=== PATIENT | male | born 1935 | race Caucasian/White ===

== ENCOUNTER 2021-10-19 18:55 | Inpatient (IN) | payer MEDICARE, BC ==
--- NOTE | 2021-10-19 19:27 | EDM.PDOC ---
ED HPI GENERAL MEDICAL PROBLEM - General Chief Complaint: General Stated Complaint: weakness Time Seen by Provider: 10/19/21 19:15 Source of Information: Reports: Patient, EMS History Limitations: Reports: Uncooperative - History of Present Illness INITIAL COMMENTS - FREE TEXT/NARRATIVE: Arrived via EMS. Reported to have been getting weaker over past few weeks. Unvaccinated and reported not to have seen a provider in over 20 years. It is difficult to obtain any history or ROS from this patient as he answers every question with a joking response, even when asked to refrain from joking long enough to talk with us. RN also unable to obtain answers without him joking. He is able to speak in full sentences, weakness noted when he tried to sit up on stretcher for lung auscultation. Location: Reports: Other (will not answer questions without joking) - Related Data Allergies Allergy/AdvReac Type Severity Reaction Status Date / Time No Known Allergies Allergy Verified 10/19/21 18:55 Home Meds: Home Meds . [No Known Home Meds] 10/19/21 [History] Past Medical History - Past Surgical History HEENT Surgical History: Reports: Cataract Surgery Social & Family History - Tobacco Use Tobacco Use Status *Q: Former Tobacco User - Alcohol Use Alcohol Use History: Yes ED ROS GENERAL - Review of Systems Review Of Systems: Unable To Obtain Reason Not Obtained: refuses to answer questions without joking ED EXAM, GENERAL - Physical Exam Exam: See Below Exam Limited By: Other (refuses to answer questions without joking) General Appearance: Alert, No Apparent Distress Eye Exam: Bilateral Eye: EOMI, Normal Inspection Ears: Normal External Exam, Hearing Grossly Normal Nose: Normal Inspection, Normal Mucosa, No Blood Throat/Mouth: Normal Inspection, Normal Oropharynx, Normal Voice, No Airway Compromise, Other (dry membranes) Head: Atraumatic, Normocephalic Neck: Normal Inspection, Supple, Non-Tender, Full Range of Motion Respiratory/Chest: No Accessory Muscle Use, Chest Non-Tender, Decreased Breath Sounds, Other (coarse breath sounds, diminished in bases, more so on left) Cardiovascular: Regular Rate, Rhythm, No Edema GI/Abdominal: Normal Bowel Sounds, Soft, Non-Tender, No Distention Extremities: Normal Inspection, Normal Range of Motion, Non-Tender, No Pedal Edema, Normal Capillary Refill Neurological: Alert, Oriented Psychiatric: Normal Affect, Normal Mood, Other (joking when answering) Skin Exam: Warm, Dry, Intact, Normal Color, No Rash Lymphatic: No Adenopathy Course - Orders/Labs/Meds Orders: Active Orders 24 hr Category Date Time Status Chest 1V Frontal [CR] Stat Exams 10/19/21 19:17 Ordered Blood Alcohol [ETHANOL BLOOD MEDICAL] [CHEM] Stat Lab 10/19/21 19:17 Ordered CBC WITH AUTO DIFF [HEME] Stat Lab 10/19/21 19:05 Ordered CMP [COMPREHENSIVE METABOLIC PN,CMP] [CHEM] Stat Lab 10/19/21 19:05 Ordered CORONAVIRUS COVID-19 RAPID [MOLEC] Stat Lab 10/19/21 18:59 Ordered INFLUENZA A+B AG SCREEN [RM] Stat Lab 10/19/21 19:12 Ordered Isolation [COMM] Routine Oth 10/19/21 19:12 Active - Re-Assessments/Exams Free Text/Narrative Re-Assessment/Exam: 10/19/21 20:00 Yasemin Plummer called and some information was obtained through her. He did have cataract surgery n 2020 and she thinks it was at [facility]. she reports that approx 7 years ago he has what she described as "a viral infection in his heart" and is supposed to take an unknown med, but he does not. She states that he drinks "a lot" but that he has not been drinking since he got sick. She reports that this behavior of not answering our questions is normal for him. 10/19/21 20:12 Pt did become serious when asked about his code status. He wishes to be DNR. BP improved, oxygen still in use, pt to room for admission. Departure - Departure Time of Disposition: 20:13 Disposition: Admitted As Inpatient 68 Condition: Good Clinical Impression: Pneumonia due to COVID-19 virus - Discharge Information - Problem List & Annotations (1) Pneumonia due to COVID-19 virus SNOMED Code(s): 910141329229660133 Code(s): U07.1 - COVID-19; J12.82 - PNEUMONIA DUE TO CORONAVIRUS DISEASE 2019 Status: Acute - My Orders Last 24 Hours: My Active Orders 10/19/21 18:59 CORONAVIRUS COVID-19 RAPID [MOLEC] Stat 10/19/21 19:05 CBC WITH AUTO DIFF [HEME] Stat CMP [COMPREHENSIVE METABOLIC PN,CMP] [CHEM] Stat 10/19/21 19:12 INFLUENZA A+B AG SCREEN [RM] Stat Isolation [COMM] Routine 10/19/21 19:17 Chest 1V Frontal [CR] Stat Blood Alcohol [ETHANOL BLOOD MEDICAL] [CHEM] Stat - Assessment/Plan Last 24 Hours: My Active Orders 10/19/21 18:59 CORONAVIRUS COVID-19 RAPID [MOLEC] Stat 10/19/21 19:05 CBC WITH AUTO DIFF [HEME] Stat CMP [COMPREHENSIVE METABOLIC PN,CMP] [CHEM] Stat 10/19/21 19:12 INFLUENZA A+B AG SCREEN [RM] Stat Isolation [COMM] Routine 10/19/21 19:17 Chest 1V Frontal [CR] Stat Blood Alcohol [ETHANOL BLOOD MEDICAL] [CHEM] Stat
[2021-10-19 19:38] LABS: CHLORIDE,CL 100 mEq/L (98-106); SODIUM,NA 139 mEq/L (136-145)
[2021-10-19] MEDS ORDERED: REMDESIVIR 200 MG in Sodium Chloride 0.9% 250 ML IV ONE (20:06)
[2021-10-19] MEDS ORDERED: Acetaminophen 325 MG Tab PO PRN (20:34)
[2021-10-19] MEDS ORDERED: Ondansetron 4 MG/2 ML SDV IV PRN (20:34)
[2021-10-19] MEDS ORDERED: Dexamethasone 4 MG/ML SDV ONE (20:58)
[2021-10-19] MEDS ORDERED: Dexamethasone 4 MG/ML 5 ML MDV IVPUSH SCH ×3 (21:00→22:00)
[2021-10-19] MEDS ORDERED: Dexamethasone 4 MG/ML SDV IVPUSH ONE (21:38)
[2021-10-19] MEDS: Albuterol/Ipratropium 3.0-0.5 MG/3 ML Neb Soln NEB PRN (21:44)
[2021-10-19] MEDS: Multivitamin Tab PO SCH (21:44)
[2021-10-19] MEDS: Dexamethasone 4 MG/ML SDV IVPUSH SCH (21:47)
[2021-10-19] MEDS: Sodium Chloride 0.9% 1,000 ML IV SCH (21:52)
[2021-10-19] MEDS ORDERED: Dexamethasone 4 MG/ML SDV IVPUSH SCH (22:00)
[2021-10-20] MEDS: Sodium Chloride 0.9% 1,000 ML IV SCH ×3 (06:03→23:28)
[2021-10-20] MEDS: Albuterol/Ipratropium 3.0-0.5 MG/3 ML Neb Soln NEB PRN (06:04)
[2021-10-20] MEDS: Multivitamin Tab PO SCH (07:36)
[2021-10-20 07:46] LABS: CHLORIDE,CL 102 mEq/L (98-106); SODIUM,NA 137 mEq/L (136-145)
--- NOTE | 2021-10-20 10:24 | PCM.PN ---
- General Info Date of Service: 10/20/21 Admission Dx/Problem (Free Text): COVID Pneumonia Subjective Update: States feeling much better today. Is answering questions more appropriately with less joking this morning. Able to sit up in bed much easier today. Functional Status: Reports: Pain Controlled, Tolerating Diet - Review of Systems General: Reports: Weakness, Malaise HEENT: Reports: No Symptoms Pulmonary: Reports: Shortness of Breath, Cough Cardiovascular: Reports: No Symptoms Gastrointestinal: Reports: No Symptoms Genitourinary: Reports: No Symptoms Musculoskeletal: Reports: No Symptoms Skin: Reports: No Symptoms Neurological: Reports: No Symptoms Psychiatric: Reports: No Symptoms - Patient Data Vitals - Most Recent: Last Vital Signs Temp 97.2 F 10/20/21 08:00 Pulse 80 10/20/21 08:00 Resp 18 10/20/21 08:00 BP 138/89 10/20/21 08:00 Pulse Ox 95 10/20/21 08:00 Weight - Most Recent: 220 lb I&O - Last 24 Hours: Intake & Output 10/19/21 10/20/21 10/20/21 22:59 06:59 14:59 Intake Total 1100 Balance 1100 Lab Results Last 24 Hours: Laboratory Results - last 24 hr 10/19/21 10/19/21 10/19/21 Range/Units 19:20 19:20 19:20 WBC 6.2 (4.0-11.0) 10^3/uL RBC 4.17 L (4.50-6.00) x10^6/uL Hgb 13.4 L (14.0-18.0) g/dL Hct 40.1 L (42.0-52.0) % MCV 96.2 (83.0-97.0) fL MCH 32.1 H (27.0-32.0) pg MCHC 33.4 (32.0-36.0) g/dL RDW Coeff of Trisha 13.3 (11.0-15.0) % Plt Count 219 (150-400) 10^3/uL Immature Gran % (Auto) 1.1 (0.0-4.9) % Neut % (Auto) 71.9 H (41-71) % Lymph % (Auto) 12.2 L (24-44) % Canyon % (Auto) 13.5 H (0-10) % Eos % (Auto) 1.0 (0-6) % Baso % (Auto) 0.3 (0-1) % Neut # (Auto) 4.48 (1.80-8.00) x10^3/uL Lymph # (Auto) 0.76 (0.60-5.00) 10^3/uL Canyon # (Auto) 0.84 (0.00-1.50) 10^3/uL Eos # (Auto) 0.06 (0.00-1.50) 10^3/uL Baso # (Auto) 0.02 (0.00-0.50) 10^3/uL Immature Gran # (Auto) 0.07 (0.00-0.49) 10^3/uL Sodium 139 (136-145) mEq/L Potassium 3.9 (3.5-5.0) mEq/L Chloride 100 (98-106) mEq/L Carbon Dioxide 27 (21-32) mmol/L BUN 20 H (7-18) mg/dL Creatinine 1.2 (0.7-1.3) mg/dL Est Cr Clr Drug Dosing 47.93 mL/min Estimated GFR (MDRD) 58 L (>=60) mL/min Glucose 102 H (75-99) mg/dL Calcium 8.3 L (8.4-10.1) mg/dL Total Bilirubin 0.7 (0.0-1.0) mg/dL Direct Bilirubin (0.0-0.3) mg/dL AST 23 (15-37) U/L ALT 38 (12-78) U/L Alkaline Phosphatase 74 (46-116) U/L C-Reactive Protein (0.2-0.8) mg/dL Total Protein 7.4 (6.4-8.2) g/dL Albumin 2.8 L (3.4-5.0) g/dL Ethyl Alcohol < 3 (0-3) mg/dL SARS CoV-2 RNA Rapid FAB Positive H (NEGATIVE) 10/19/21 10/20/21 10/20/21 Range/Units 19:20 07:05 07:05 WBC 3.0 L (4.0-11.0) 10^3/uL RBC 4.04 L (4.50-6.00) x10^6/uL Hgb 12.9 L (14.0-18.0) g/dL Hct 38.8 L (42.0-52.0) % MCV 96.0 (83.0-97.0) fL MCH 31.9 (27.0-32.0) pg MCHC 33.2 (32.0-36.0) g/dL RDW Coeff of Trisha 13.4 (11.0-15.0) % Plt Count 208 (150-400) 10^3/uL Immature Gran % (Auto) 2.0 (0.0-4.9) % Neut % (Auto) 76.9 H (41-71) % Lymph % (Auto) 13.4 L (24-44) % Canyon % (Auto) 7.4 (0-10) % Eos % (Auto) 0.0 (0-6) % Baso % (Auto) 0.3 (0-1) % Neut # (Auto) 2.29 (1.80-8.00) x10^3/uL Lymph # (Auto) 0.40 L (0.60-5.00) 10^3/uL Canyon # (Auto) 0.22 (0.00-1.50) 10^3/uL Eos # (Auto) 0.00 (0.00-1.50) 10^3/uL Baso # (Auto) 0.01 (0.00-0.50) 10^3/uL Immature Gran # (Auto) 0.06 (0.00-0.49) 10^3/uL Sodium (136-145) mEq/L Potassium (3.5-5.0) mEq/L Chloride (98-106) mEq/L Carbon Dioxide (21-32) mmol/L BUN (7-18) mg/dL Creatinine (0.7-1.3) mg/dL Est Cr Clr Drug Dosing mL/min Estimated GFR (MDRD) (>=60) mL/min Glucose (75-99) mg/dL Calcium (8.4-10.1) mg/dL Total Bilirubin (0.0-1.0) mg/dL Direct Bilirubin 0.1 (0.0-0.3) mg/dL AST (15-37) U/L ALT (12-78) U/L Alkaline Phosphatase (46-116) U/L C-Reactive Protein 12.7 H (0.2-0.8) mg/dL Total Protein (6.4-8.2) g/dL Albumin (3.4-5.0) g/dL Ethyl Alcohol (0-3) mg/dL SARS CoV-2 RNA Rapid FAB (NEGATIVE) 10/20/21 10/20/21 Range/Units 07:05 10:10 WBC (4.0-11.0) 10^3/uL RBC (4.50-6.00) x10^6/uL Hgb (14.0-18.0) g/dL Hct (42.0-52.0) % MCV (83.0-97.0) fL MCH (27.0-32.0) pg MCHC (32.0-36.0) g/dL RDW Coeff of Trisha (11.0-15.0) % Plt Count (150-400) 10^3/uL Immature Gran % (Auto) (0.0-4.9) % Neut % (Auto) (41-71) % Lymph % (Auto) (24-44) % Canyon % (Auto) (0-10) % Eos % (Auto) (0-6) % Baso % (Auto) (0-1) % Neut # (Auto) (1.80-8.00) x10^3/uL Lymph # (Auto) (0.60-5.00) 10^3/uL Canyon # (Auto) (0.00-1.50) 10^3/uL Eos # (Auto) (0.00-1.50) 10^3/uL Baso # (Auto) (0.00-0.50) 10^3/uL Immature Gran # (Auto) (0.00-0.49) 10^3/uL Sodium 137 (136-145) mEq/L Potassium 4.3 (3.5-5.0) mEq/L Chloride 102 (98-106) mEq/L Carbon Dioxide 24 (21-32) mmol/L BUN 21 H (7-18) mg/dL Creatinine 1.0 (0.7-1.3) mg/dL Est Cr Clr Drug Dosing 59.61 mL/min Estimated GFR (MDRD) > 60 (>=60) mL/min Glucose 149 H D (75-99) mg/dL Calcium 8.0 L (8.4-10.1) mg/dL Total Bilirubin 0.4 (0.0-1.0) mg/dL Direct Bilirubin (0.0-0.3) mg/dL AST 23 (15-37) U/L ALT 35 (12-78) U/L Alkaline Phosphatase 74 (46-116) U/L C-Reactive Protein 13.6 H (0.2-0.8) mg/dL Total Protein 7.1 (6.4-8.2) g/dL Albumin 2.6 L (3.4-5.0) g/dL Ethyl Alcohol (0-3) mg/dL SARS CoV-2 RNA Rapid FAB (NEGATIVE) [place]ell Results Last 24 Hours: Microbiology 10/19/21 19:20 Influenza Type A Antigen Screen - Final Nasal, Unspecified NEGATIVE INFLUENZA A VIRUS AG REFERENCE RANGE: NEGATIVE Influenza Type B Antigen Screen - Final NEGATIVE INFLUENZA B VIRUS AG REFERENCE RANGE: NEGATIVE Med Orders - Current: Current Medications Acetaminophen (Acetaminophen 325 Mg Tab) 650 mg PO Q4H PRN PRN Reason: Pain (Mild 1-3)/fever Albuterol/Ipratropium (Albuterol/Ipratropium 3.0-0.5 Mg/3 Ml Neb Soln) 3 ml NEB Q4H PRN PRN Reason: Shortness Of Breath/wheezing Last Admin: 10/20/21 06:04 Dose: 3 ml Documented by: Dexamethasone (Dexamethasone 4 Mg/Ml Sdv) 6 mg IVPUSH DAILY@2200 [facility] Stop: 10/23/21 22:01 Last Admin: 10/19/21 21:47 Dose: 6 mg Documented by: Enoxaparin Sodium (Enoxaparin 40 Mg/0.4 Ml Syringe) 40 mg SUBCUT Q24H [facility] Sodium Chloride (Normal Saline) 1,000 mls @ 125 mls/hr IV ASDIRECTED [facility] Last Admin: 10/20/21 06:03 Dose: 125 mls/hr Documented by: Remdesivir 100 mg/ Sodium (Chloride) 100 mls @ 100 mls/hr IV Q24H [facility] Stop: 10/23/21 20:59 Multivitamins/Minerals/Vitamin C (Multivitamin Tab) 1 tab PO DAILY [facility] Last Admin: 10/20/21 07:36 Dose: 1 tab Documented by: Ondansetron HCl (Ondansetron 4 Mg/2 Ml Sdv) 4 mg IV Q6H PRN PRN Reason: Nausea/Vomiting Discontinued Medications Dexamethasone (Dexamethasone 4 Mg/Ml 5 Ml Mdv) 6 mg IVPUSH Q24H [facility] Stop: 10/23/21 21:01 Dexamethasone (Dexamethasone 4 Mg/Ml Sdv) Confirm Administered Dose 8 mg .ROUTE .STK-MED ONE Stop: 10/19/21 20:59 Dexamethasone (Dexamethasone 4 Mg/Ml Sdv) 6 mg IVPUSH ONETIME ONE Stop: 10/19/21 21:39 Dexamethasone (Dexamethasone 4 Mg/Ml 5 Ml Mdv) 6 mg IVPUSH Q24H [facility] Stop: 10/23/21 21:01 Dexamethasone (Dexamethasone 4 Mg/Ml 5 Ml Mdv) 6 mg IVPUSH Q24H [facility] Stop: 10/23/21 22:01 Dexamethasone (Dexamethasone 4 Mg/Ml 5 Ml Mdv) 6 mg IVPUSH Q24H [facility] Stop: 10/22/21 21:39 Dexamethasone (Dexamethasone 4 Mg/Ml Sdv) 4 mg IVPUSH DAILY@2200 [facility] Remdesivir 200 mg/ Sodium (Chloride) 250 mls @ 250 mls/hr IV ONETIME ONE Stop: 10/19/21 20:07 Last Admin: 10/19/21 20:48 Dose: 250 mls/hr Documented by: - Exam Quality Assessment: Supplemental Oxygen, DVT Prophylaxis General: Alert, Oriented, Cooperative HEENT: EOMI, Mucous Membr. Moist/[place] Neck: Supple Lungs: Decreased Breath Sounds, Other (somewhat coarse, but better airflow today) Cardiovascular: Regular Rate, Regular Rhythm GI/Abdominal Exam: Normal Bowel Sounds, Soft, Non-Tender, No Distention Extremities: Normal Range of Motion, No Pedal Edema, Normal Capillary Refill Skin: Warm, Dry, Intact Neurological: No New Focal Deficit Psy/Mental Status: Alert, Normal Affect, Normal Mood - Patient Data Lab Results Last 24 hrs: Laboratory Results - last 24 hr 10/19/21 10/19/21 10/19/21 Range/Units 19:20 19:20 19:20 WBC 6.2 (4.0-11.0) 10^3/uL RBC 4.17 L (4.50-6.00) x10^6/uL Hgb 13.4 L (14.0-18.0) g/dL Hct 40.1 L (42.0-52.0) % MCV 96.2 (83.0-97.0) fL MCH 32.1 H (27.0-32.0) pg MCHC 33.4 (32.0-36.0) g/dL RDW Coeff of Trisha 13.3 (11.0-15.0) % Plt Count 219 (150-400) 10^3/uL Immature Gran % (Auto) 1.1 (0.0-4.9) % Neut % (Auto) 71.9 H (41-71) % Lymph % (Auto) 12.2 L (24-44) % Canyon % (Auto) 13.5 H (0-10) % Eos % (Auto) 1.0 (0-6) % Baso % (Auto) 0.3 (0-1) % Neut # (Auto) 4.48 (1.80-8.00) x10^3/uL Lymph # (Auto) 0.76 (0.60-5.00) 10^3/uL [place] # (Auto) 0.84 (0.00-1.50) 10^3/uL Eos # (Auto) 0.06 (0.00-1.50) 10^3/uL Baso # (Auto) 0.02 (0.00-0.50) 10^3/uL Immature Gran # (Auto) 0.07 (0.00-0.49) 10^3/uL Sodium 139 (136-145) mEq/L Potassium 3.9 (3.5-5.0) mEq/L Chloride 100 (98-106) mEq/L Carbon Dioxide 27 (21-32) mmol/L BUN 20 H (7-18) mg/dL Creatinine 1.2 (0.7-1.3) mg/dL Est Cr Clr Drug Dosing 47.93 mL/min Estimated GFR (MDRD) 58 L (>=60) mL/min Glucose 102 H (75-99) mg/dL Calcium 8.3 L (8.4-10.1) mg/dL Total Bilirubin 0.7 (0.0-1.0) mg/dL Direct Bilirubin (0.0-0.3) mg/dL AST 23 (15-37) U/L ALT 38 (12-78) U/L Alkaline Phosphatase 74 (46-116) U/L C-Reactive Protein (0.2-0.8) mg/dL Total Protein 7.4 (6.4-8.2) g/dL Albumin 2.8 L (3.4-5.0) g/dL Ethyl Alcohol < 3 (0-3) mg/dL SARS CoV-2 RNA Rapid FAB Positive H (NEGATIVE) 10/19/21 10/20/21 10/20/21 Range/Units 19:20 07:05 07:05 WBC 3.0 L (4.0-11.0) 10^3/uL RBC 4.04 L (4.50-6.00) x10^6/uL Hgb 12.9 L (14.0-18.0) g/dL Hct 38.8 L (42.0-52.0) % MCV 96.0 (83.0-97.0) fL MCH 31.9 (27.0-32.0) pg MCHC 33.2 (32.0-36.0) g/dL RDW Coeff of Trisha 13.4 (11.0-15.0) % Plt Count 208 (150-400) 10^3/uL Immature Gran % (Auto) 2.0 (0.0-4.9) % Neut % (Auto) 76.9 H (41-71) % Lymph % (Auto) 13.4 L (24-44) % Canyon % (Auto) 7.4 (0-10) % Eos % (Auto) 0.0 (0-6) % Baso % (Auto) 0.3 (0-1) % Neut # (Auto) 2.29 (1.80-8.00) x10^3/uL Lymph # (Auto) 0.40 L (0.60-5.00) 10^3/uL [place] # (Auto) 0.22 (0.00-1.50) 10^3/uL Eos # (Auto) 0.00 (0.00-1.50) 10^3/uL Baso # (Auto) 0.01 (0.00-0.50) 10^3/uL Immature Gran # (Auto) 0.06 (0.00-0.49) 10^3/uL Sodium (136-145) mEq/L Potassium (3.5-5.0) mEq/L Chloride (98-106) mEq/L Carbon Dioxide (21-32) mmol/L BUN (7-18) mg/dL Creatinine (0.7-1.3) mg/dL Est Cr Clr Drug Dosing mL/min Estimated GFR (MDRD) (>=60) mL/min Glucose (75-99) mg/dL Calcium (8.4-10.1) mg/dL Total Bilirubin (0.0-1.0) mg/dL Direct Bilirubin 0.1 (0.0-0.3) mg/dL AST (15-37) U/L ALT (12-78) U/L Alkaline Phosphatase (46-116) U/L C-Reactive Protein 12.7 H (0.2-0.8) mg/dL Total Protein (6.4-8.2) g/dL Albumin (3.4-5.0) g/dL Ethyl Alcohol (0-3) mg/dL SARS CoV-2 RNA Rapid FAB (NEGATIVE) 10/20/21 10/20/21 Range/Units 07:05 10:10 WBC (4.0-11.0) 10^3/uL RBC (4.50-6.00) x10^6/uL Hgb (14.0-18.0) g/dL Hct (42.0-52.0) % MCV (83.0-97.0) fL MCH (27.0-32.0) pg MCHC (32.0-36.0) g/dL RDW Coeff of Trisha (11.0-15.0) % Plt Count (150-400) 10^3/uL Immature Gran % (Auto) (0.0-4.9) % Neut % (Auto) (41-71) % Lymph % (Auto) (24-44) % Canyon % (Auto) (0-10) % Eos % (Auto) (0-6) % Baso % (Auto) (0-1) % Neut # (Auto) (1.80-8.00) x10^3/uL Lymph # (Auto) (0.60-5.00) 10^3/uL [place] # (Auto) (0.00-1.50) 10^3/uL Eos # (Auto) (0.00-1.50) 10^3/uL Baso # (Auto) (0.00-0.50) 10^3/uL Immature Gran # (Auto) (0.00-0.49) 10^3/uL Sodium 137 (136-145) mEq/L Potassium 4.3 (3.5-5.0) mEq/L Chloride 102 (98-106) mEq/L Carbon Dioxide 24 (21-32) mmol/L BUN 21 H (7-18) mg/dL Creatinine 1.0 (0.7-1.3) mg/dL Est Cr Clr Drug Dosing 59.61 mL/min Estimated GFR (MDRD) > 60 (>=60) mL/min Glucose 149 H D (75-99) mg/dL Calcium 8.0 L (8.4-10.1) mg/dL Total Bilirubin 0.4 (0.0-1.0) mg/dL Direct Bilirubin (0.0-0.3) mg/dL AST 23 (15-37) U/L ALT 35 (12-78) U/L Alkaline Phosphatase 74 (46-116) U/L C-Reactive Protein 13.6 H (0.2-0.8) mg/dL Total Protein 7.1 (6.4-8.2) g/dL Albumin 2.6 L (3.4-5.0) g/dL Ethyl Alcohol (0-3) mg/dL SARS CoV-2 RNA Rapid FAB (NEGATIVE) Result Diagrams: 10/20/21 07:05 10/20/21 07:05 [place] Results Last 24 hrs: Microbiology 10/19/21 19:20 Influenza Type A Antigen Screen - Final Nasal, Unspecified NEGATIVE INFLUENZA A VIRUS AG REFERENCE RANGE: NEGATIVE Influenza Type B Antigen Screen - Final NEGATIVE INFLUENZA B VIRUS AG REFERENCE RANGE: NEGATIVE Sepsis Event Note - Focused Exam Vital Signs: Vital Signs Temp Pulse Resp BP BP Pulse Ox 10/20/21 08:00 97.2 F 80 18 138/89 95 10/20/21 04:00 98.9 F 61 20 139/82 93 L 10/20/21 00:00 66 19 129/74 94 L - Problem List & Annotations (1) Pneumonia due to COVID-19 virus SNOMED Code(s): 378685017302803838 Code(s): U07.1 - COVID-19; J12.82 - PNEUMONIA DUE TO CORONAVIRUS DISEASE 2019 Status: Acute Current Visit: Yes - Problem List Review Problem List Initiated/Reviewed/Updated: Yes - My Orders Last 24 Hours: My Active Orders 10/19/21 19:12 Isolation [COMM] Routine 10/19/21 19:33 Chest 1V Frontal [CR] Stat 10/19/21 20:34 Height and Weight [RC] .PRN Acetaminophen [TylenoL] 650 mg PO Q4H PRN Albuterol/Ipratropium [DuoNeb 3.0-0.5 MG/3 ML] 3 ml NEB Q4H PRN Ondansetron [Zofran] 4 mg IV Q6H PRN Resuscitation Status Routine 10/19/21 20:35 Patient Status [ADT] Routine Oxygen Therapy [RC] PRN Vital Signs [RC] 0000,0400,0800,1200,1400,1800,2000 10/19/21 20:37 Cardiac Monitoring [RC] 0800,2000 Intake and Output [RC] 0600,1800 10/19/21 20:41 RT Aerosol Therapy [RC] 0600,1800 10/19/21 20:45 Multivitamins [Tab-A-Krista] 1 tab PO DAILY 10/19/21 21:00 Sodium Chloride 0.9% [Normal Saline] 1,000 ml IV ASDIRECTED 10/19/21 22:00 dexAMETHasone [Decadron] 6 mg IVPUSH DAILY@2200 10/20/21 Breakfast Regular Diet [DIET] 10/20/21 12:00 Enoxaparin [Lovenox] 40 mg SUBCUT Q24H 10/20/21 20:00 Remdesivir 100 mg Sodium Chloride 0.9% [Normal Saline AdvBag] 100 ml IV Q24H 10/21/21 20:15 BILIRUBIN DIRECT [CHEM] DAILY 10/21/21 20:45 COMPREHENSIVE METABOLIC PN,CMP [CHEM] DAILY 10/22/21 20:15 BILIRUBIN DIRECT [CHEM] DAILY 10/22/21 20:45 COMPREHENSIVE METABOLIC PN,CMP [CHEM] DAILY 10/23/21 20:15 BILIRUBIN DIRECT [CHEM] DAILY 10/23/21 20:45 COMPREHENSIVE METABOLIC PN,CMP [CHEM] DAILY - Plan Plan:: Continue remdesivir, dexamethasone, oxygen.
[2021-10-20] MEDS ORDERED: Enoxaparin 40 MG/0.4 ML Syringe SUBCUT SCH (12:00)
[2021-10-20] MEDS: Aspirin 325 MG Tab PO SCH (19:42)
[2021-10-20] MEDS: REMDESIVIR 100 MG in Sodium Chloride 0.9% 100 ML IV SCH (19:43)
[2021-10-20] MEDS ORDERED: Dexamethasone 4 MG/ML 5 ML MDV IVPUSH SCH (21:00)
[2021-10-20] MEDS: Dexamethasone 4 MG/ML SDV IVPUSH SCH (21:48)
[2021-10-21 07:25] LABS: CHLORIDE,CL 105 mEq/L (98-106); SODIUM,NA 138 mEq/L (136-145)
[2021-10-21] MEDS: Multivitamin Tab PO SCH (07:57)
[2021-10-21] MEDS: Sodium Chloride 0.9% 1,000 ML IV SCH (08:04)
--- NOTE | 2021-10-21 10:05 | PCM.PN ---
- General Info Date of Service: 10/21/21 Admission Dx/Problem (Free Text): COVID Pneumonia Subjective Update: States feeling better today. Labs improving. Still not able to determine when symptoms began, but pt is responding favorably to treatment. Functional Status: Reports: Pain Controlled, Tolerating Diet, Urinating - Review of Systems General: Reports: No Symptoms HEENT: Reports: No Symptoms Pulmonary: Reports: Shortness of Breath, Cough Cardiovascular: Reports: No Symptoms Gastrointestinal: Reports: No Symptoms Genitourinary: Reports: No Symptoms Musculoskeletal: Reports: No Symptoms Skin: Reports: No Symptoms Neurological: Reports: No Symptoms Psychiatric: Reports: No Symptoms - Patient Data Vitals - Most Recent: Last Vital Signs Temp 96.3 F L 10/21/21 08:00 Pulse 84 10/21/21 08:00 Resp 18 10/21/21 08:00 BP 138/82 10/21/21 08:00 Pulse Ox 98 10/21/21 08:00 Weight - Most Recent: 220 lb I&O - Last 24 Hours: Intake & Output 10/20/21 10/21/21 10/21/21 22:59 06:59 14:59 Intake Total 8014 987 7854 Output Total 500 300 500 Balance 1300 -150 500 Lab Results Last 24 Hours: Laboratory Results - last 24 hr 10/20/21 10/21/21 10/21/21 Range/Units 10:10 07:00 07:00 WBC (4.0-11.0) 10^3/uL RBC (4.50-6.00) x10^6/uL Hgb (14.0-18.0) g/dL Hct (42.0-52.0) % MCV (83.0-97.0) fL MCH (27.0-32.0) pg MCHC (32.0-36.0) g/dL RDW Coeff of Trisha (11.0-15.0) % Plt Count (150-400) 10^3/uL Immature Gran % (Auto) (0.0-4.9) % Neut % (Auto) (41-71) % Lymph % (Auto) (24-44) % [place] % (Auto) (0-10) % Eos % (Auto) (0-6) % Baso % (Auto) (0-1) % Neut # (Auto) (1.80-8.00) x10^3/uL Lymph # (Auto) (0.60-5.00) 10^3/uL [place] # (Auto) (0.00-1.50) 10^3/uL Eos # (Auto) (0.00-1.50) 10^3/uL Baso # (Auto) (0.00-0.50) 10^3/uL Immature Gran # (Auto) (0.00-0.49) 10^3/uL Sodium 138 (136-145) mEq/L Potassium 4.2 (3.5-5.0) mEq/L Chloride 105 (98-106) mEq/L Carbon Dioxide 24 (21-32) mmol/L BUN 19 H (7-18) mg/dL Creatinine 0.9 (0.7-1.3) mg/dL Est Cr Clr Drug Dosing 66.24 mL/min Estimated GFR (MDRD) > 60 (>=60) mL/min Glucose 151 H (75-99) mg/dL Calcium 7.6 L (8.4-10.1) mg/dL Total Bilirubin 0.3 (0.0-1.0) mg/dL Direct Bilirubin 0.1 (0.0-0.3) mg/dL AST 24 (15-37) U/L ALT 41 (12-78) U/L Alkaline Phosphatase 66 (46-116) U/L C-Reactive Protein 13.6 H 6.1 H (0.2-0.8) mg/dL Total Protein 6.4 (6.4-8.2) g/dL Albumin 2.4 L (3.4-5.0) g/dL 10/21/21 Range/Units 09:31 WBC 6.6 (4.0-11.0) 10^3/uL RBC 3.91 L (4.50-6.00) x10^6/uL Hgb 12.4 L (14.0-18.0) g/dL Hct 37.4 L (42.0-52.0) % MCV 95.7 (83.0-97.0) fL MCH 31.7 (27.0-32.0) pg MCHC 33.2 (32.0-36.0) g/dL RDW Coeff of Trisha 13.5 (11.0-15.0) % Plt Count 264 (150-400) 10^3/uL Immature Gran % (Auto) 1.1 (0.0-4.9) % Neut % (Auto) 85.8 H (41-71) % Lymph % (Auto) 6.5 L (24-44) % [place] % (Auto) 6.4 (0-10) % Eos % (Auto) 0.0 (0-6) % Baso % (Auto) 0.2 (0-1) % Neut # (Auto) 5.68 (1.80-8.00) x10^3/uL Lymph # (Auto) 0.43 L (0.60-5.00) 10^3/uL [place] # (Auto) 0.42 (0.00-1.50) 10^3/uL Eos # (Auto) 0.00 (0.00-1.50) 10^3/uL Baso # (Auto) 0.01 (0.00-0.50) 10^3/uL Immature Gran # (Auto) 0.07 (0.00-0.49) 10^3/uL Sodium (136-145) mEq/L Potassium (3.5-5.0) mEq/L Chloride (98-106) mEq/L Carbon Dioxide (21-32) mmol/L BUN (7-18) mg/dL Creatinine (0.7-1.3) mg/dL Est Cr Clr Drug Dosing mL/min Estimated GFR (MDRD) (>=60) mL/min Glucose (75-99) mg/dL Calcium (8.4-10.1) mg/dL Total Bilirubin (0.0-1.0) mg/dL Direct Bilirubin (0.0-0.3) mg/dL AST (15-37) U/L ALT (12-78) U/L Alkaline Phosphatase (46-116) U/L C-Reactive Protein (0.2-0.8) mg/dL Total Protein (6.4-8.2) g/dL Albumin (3.4-5.0) g/dL Med Orders - Current: Current Medications Acetaminophen (Acetaminophen 325 Mg Tab) 650 mg PO Q4H PRN PRN Reason: Pain (Mild 1-3)/fever Albuterol/Ipratropium (Albuterol/Ipratropium 3.0-0.5 Mg/3 Ml Neb Soln) 3 ml NEB Q4H PRN PRN Reason: Shortness Of Breath/wheezing Last Admin: 10/20/21 06:04 Dose: 3 ml Documented by: Aspirin (Aspirin 325 Mg Tab) 325 mg PO DAILY@1999 [facility] Last Admin: 10/20/21 19:42 Dose: 325 mg Documented by: Calcium Carbonate (Calcium Carbonate/Vitamin D3 1250 Mg-5 Mcg Tab) 1 tab PO BIDMEALS COUNT INCLUDES [facility] Dexamethasone (Dexamethasone 4 Mg/Ml Sdv) 6 mg IVPUSH DAILY@2200 [facility]CLUD[facility] Stop: 10/23/21 22:01 Last Admin: 10/20/21 21:48 Dose: 6 mg Documented by: Sodium Chloride (Normal Saline) 1,000 mls @ 125 mls/hr IV ASDIRECTED COUNT [facility]CLUDES [facility] Last Admin: 10/21/21 08:04 Dose: 125 mls/hr Documented by: Remdesivir 100 mg/ Sodium (Chloride) 100 mls @ 100 mls/hr IV Q24H COUNT [facility]CLUDES [facility] Stop: 10/23/21 20:59 Last Admin: 10/20/21 19:43 Dose: 100 mls/hr Documented by: Multivitamins/Minerals/Vitamin C (Multivitamin Tab) 1 tab PO DAILY COUNT [facility]CLUDES [facility] Last Admin: 10/21/21 07:57 Dose: 1 tab Documented by: Ondansetron HCl (Ondansetron 4 Mg/2 Ml Sdv) 4 mg IV Q6H PRN PRN Reason: Nausea/Vomiting Discontinued Medications Dexamethasone (Dexamethasone 4 Mg/Ml 5 Ml Mdv) 6 mg IVPUSH Q24H COUNT [facility]CLUDES [facility] Stop: 10/23/21 21:01 Last Admin: 10/20/21 20:15 Dose: Not Given Documented by: Dexamethasone (Dexamethasone 4 Mg/Ml Sdv) Confirm Administered Dose 8 mg .ROUTE .STK-MED ONE Stop: 10/19/21 20:59 Last Admin: 10/20/21 20:15 Dose: Not Given Documented by: Dexamethasone (Dexamethasone 4 Mg/Ml Sdv) 6 mg IVPUSH ONETIME ONE Stop: 10/19/21 21:39 Dexamethasone (Dexamethasone 4 Mg/Ml 5 Ml Mdv) 6 mg IVPUSH Q24H COUNT [facility]CLUDES [facility] Stop: 10/23/21 21:01 Dexamethasone (Dexamethasone 4 Mg/Ml 5 Ml Mdv) 6 mg IVPUSH Q24H COUNT [facility]CLUDES THE [facility] Stop: 10/23/21 22:01 Dexamethasone (Dexamethasone 4 Mg/Ml 5 Ml Mdv) 6 mg IVPUSH Q24H COUNT [facility]CLUDES THE [facility] Stop: 10/22/21 21:39 Last Admin: 10/20/21 20:15 Dose: Not Given Documented by: Dexamethasone (Dexamethasone 4 Mg/Ml Sdv) 4 mg IVPUSH DAILY@2200 JORDYN Enoxaparin Sodium (Enoxaparin 40 Mg/0.4 Ml Syringe) 40 mg SUBCUT Q24H COUNT INCLUDES THE [facility] Last Admin: 10/20/21 12:24 Dose: Not Given Documented by: Remdesivir 200 mg/ Sodium (Chloride) 250 mls @ 250 mls/hr IV ONETIME ONE Stop: 10/19/21 20:07 Last Admin: 10/19/21 20:48 Dose: 250 mls/hr Documented by: - Exam Quality Assessment: Supplemental Oxygen (prn) General: Alert, Oriented, Cooperative, No Acute Distress HEENT: EOMI, Mucous Membr. Moist/[place] Neck: Supple Lungs: Normal Respiratory Effort, Decreased Breath Sounds Cardiovascular: Regular Rate, Regular Rhythm GI/Abdominal Exam: Normal Bowel Sounds, Soft, Non-Tender, No Distention Back Exam: Full Range of Motion Extremities: Normal Inspection, Normal Range of Motion, Non-Tender, No Pedal Edema, Normal Capillary Refill Skin: Warm, Dry, Intact Neurological: No New Focal Deficit Psy/Mental Status: Alert, Normal Affect, Normal Mood - Patient Data Lab Results Last 24 hrs: Laboratory Results - last 24 hr 10/20/21 10/21/21 10/21/21 Range/Units 10:10 07:00 07:00 WBC (4.0-11.0) 10^3/uL RBC (4.50-6.00) x10^6/uL Hgb (14.0-18.0) g/dL Hct (42.0-52.0) % MCV (83.0-97.0) fL MCH (27.0-32.0) pg MCHC (32.0-36.0) g/dL RDW Coeff of Trisha (11.0-15.0) % Plt Count (150-400) 10^3/uL Immature Gran % (Auto) (0.0-4.9) % Neut % (Auto) (41-71) % Lymph % (Auto) (24-44) % [place] % (Auto) (0-10) % Eos % (Auto) (0-6) % Baso % (Auto) (0-1) % Neut # (Auto) (1.80-8.00) x10^3/uL Lymph # (Auto) (0.60-5.00) 10^3/uL [place] # (Auto) (0.00-1.50) 10^3/uL Eos # (Auto) (0.00-1.50) 10^3/uL Baso # (Auto) (0.00-0.50) 10^3/uL Immature Gran # (Auto) (0.00-0.49) 10^3/uL Sodium 138 (136-145) mEq/L Potassium 4.2 (3.5-5.0) mEq/L Chloride 105 (98-106) mEq/L Carbon Dioxide 24 (21-32) mmol/L BUN 19 H (7-18) mg/dL Creatinine 0.9 (0.7-1.3) mg/dL Est Cr Clr Drug Dosing 66.24 mL/min Estimated GFR (MDRD) > 60 (>=60) mL/min Glucose 151 H (75-99) mg/dL Calcium 7.6 L (8.4-10.1) mg/dL Total Bilirubin 0.3 (0.0-1.0) mg/dL Direct Bilirubin 0.1 (0.0-0.3) mg/dL AST 24 (15-37) U/L ALT 41 (12-78) U/L Alkaline Phosphatase 66 (46-116) U/L C-Reactive Protein 13.6 H 6.1 H (0.2-0.8) mg/dL Total Protein 6.4 (6.4-8.2) g/dL Albumin 2.4 L (3.4-5.0) g/dL 10/21/21 Range/Units 09:31 WBC 6.6 (4.0-11.0) 10^3/uL RBC 3.91 L (4.50-6.00) x10^6/uL Hgb 12.4 L (14.0-18.0) g/dL Hct 37.4 L (42.0-52.0) % MCV 95.7 (83.0-97.0) fL MCH 31.7 (27.0-32.0) pg MCHC 33.2 (32.0-36.0) g/dL RDW Coeff of Trisha 13.5 (11.0-15.0) % Plt Count 264 (150-400) 10^3/uL Immature Gran % (Auto) 1.1 (0.0-4.9) % Neut % (Auto) 85.8 H (41-71) % Lymph % (Auto) 6.5 L (24-44) % [place] % (Auto) 6.4 (0-10) % Eos % (Auto) 0.0 (0-6) % Baso % (Auto) 0.2 (0-1) % Neut # (Auto) 5.68 (1.80-8.00) x10^3/uL Lymph # (Auto) 0.43 L (0.60-5.00) 10^3/uL [place] # (Auto) 0.42 (0.00-1.50) 10^3/uL Eos # (Auto) 0.00 (0.00-1.50) 10^3/uL Baso # (Auto) 0.01 (0.00-0.50) 10^3/uL Immature Gran # (Auto) 0.07 (0.00-0.49) 10^3/uL Sodium (136-145) mEq/L Potassium (3.5-5.0) mEq/L Chloride (98-106) mEq/L Carbon Dioxide (21-32) mmol/L BUN (7-18) mg/dL Creatinine (0.7-1.3) mg/dL Est Cr Clr Drug Dosing mL/min Estimated GFR (MDRD) (>=60) mL/min Glucose (75-99) mg/dL Calcium (8.4-10.1) mg/dL Total Bilirubin (0.0-1.0) mg/dL Direct Bilirubin (0.0-0.3) mg/dL AST (15-37) U/L ALT (12-78) U/L Alkaline Phosphatase (46-116) U/L C-Reactive Protein (0.2-0.8) mg/dL Total Protein (6.4-8.2) g/dL Albumin (3.4-5.0) g/dL Result Diagrams: 10/21/21 09:31 10/21/21 07:00 Sepsis Event Note - Focused Exam Vital Signs: Vital Signs Temp Pulse Resp BP BP Pulse Ox 10/21/21 08:00 96.3 F L 84 18 138/82 98 10/21/21 03:58 97.6 F 68 20 140/87 94 L 10/20/21 23:44 97.9 F 65 20 143/79 H 97 - Problem List & Annotations (1) Pneumonia due to COVID-19 virus SNOMED Code(s): 473032195942730561 Code(s): U07.1 - COVID-19; J12.82 - PNEUMONIA DUE TO CORONAVIRUS DISEASE 2019 Status: Acute Current Visit: Yes - Problem List Review Problem List Initiated/Reviewed/Updated: Yes - My Orders Last 24 Hours: My Active Orders 10/20/21 20:00 Aspirin 325 mg PO DAILY@2000 Remdesivir 100 mg Sodium Chloride 0.9% [Normal Saline AdvBag] 100 ml IV Q24H 10/21/21 17:30 Calcium Carbonate/Vitamin D3 [Calcium Carbonate/Vitamin D 1250 MG - 5 MCG] 1 tab PO BIDMEALS 10/22/21 20:15 BILIRUBIN DIRECT [CHEM] DAILY 10/22/21 20:45 COMPREHENSIVE METABOLIC PN,CMP [CHEM] DAILY 10/23/21 20:15 BILIRUBIN DIRECT [CHEM] DAILY 10/23/21 20:45 COMPREHENSIVE METABOLIC PN,CMP [CHEM] DAILY - Plan Plan:: Continue remdesivir, dexamethasone, oxygen. 10/21/20 As the date of when symptoms began is uncertain and given the fact that the pt is responding favorably to treatment, we will continue the remdesivir and dexamthasone for now.
[2021-10-21] MEDS ORDERED: Calcium Carbonate/Vitamin D3 1250 MG-5 MCG Tab PO SCH (17:30)
[2021-10-21] MEDS: REMDESIVIR 100 MG in Sodium Chloride 0.9% 100 ML IV SCH (19:42)
[2021-10-21] MEDS: Calcium Carbonate/Vitamin D3 1250 MG-5 MCG Tab PO SCH (19:42)
[2021-10-21] MEDS: Aspirin 325 MG Tab PO SCH (19:42)
[2021-10-21] MEDS: Dexamethasone 4 MG/ML SDV IVPUSH SCH (21:38)
[2021-10-22] MEDS: Sodium Chloride 0.9% 1,000 ML IV SCH (03:27)
[2021-10-22 07:54] LABS: CHLORIDE,CL 105 mEq/L (98-106); SODIUM,NA 139 mEq/L (136-145)
[2021-10-22] MEDS: Multivitamin Tab PO SCH (07:58)
[2021-10-22] MEDS: Calcium Carbonate/Vitamin D3 1250 MG-5 MCG Tab PO SCH (07:59)
--- NOTE | 2021-10-22 10:29 | PCM.DCSUM1 ---
Discharge Summary - Hospital Course Free Text/Narrative:: Admitted to hospital with COVID pneumonia, date of symptom onset undetermined due to willingness to provide history and differing histories given by family members. Pt received Remdesivir and dexametha sone and has responded favorably. He has been off of oxygen for greater than 24 hours now, and nursing staff reports O2 sats in mid 90s on room air. Has ambulated in room and O2 sat wnl. States that he is wanting to be discharged home. Diagnosis: Stroke: No - Discharge Data Discharge Date: 10/22/21 Discharge Disposition: Home, Self-Care 01 Condition: Stable - Referral to Home Health Primary Care Physician: PCP Unknown, needs to establish - Discharge Diagnosis/Problem(s) (1) Pneumonia due to COVID-19 virus SNOMED Code(s): 842826039849956461 ICD Code: U07.1 - COVID-19; J12.82 - PNEUMONIA DUE TO CORONAVIRUS DISEASE 2019 Status: Acute Current Visit: Yes - Patient Summary/Data Consults: Pt will need to follow up with a Primary Care Provider as he states that he has not been seen in a number of years. Recommended Follow-up Testing/Procedures: Follow up CXR if PCP recommends. - Patient Instructions Diet: Usual Diet as Tolerated Showering/Bathing: May Shower Notify Provider of: Fever, Increased Pain, Swelling and Redness, Drainage, Nausea and/or Vomiting - Discharge Plan Home Medications: Home Meds . [No Known Home Meds] 10/19/21 [History] Oxygen Therapy Mode: Room Air Forms: ED Department Discharge Referrals: PCP,Unknown [Primary Care Provider] - - Discharge Summary/Plan Comment DC Time >30 min.: No Total # of Minutes for Discharge Time: 30 min Discharge Summary/Plan Comment: Will continue daily MVI and Aspirin 81mg for the next two weeks or until seen by PCP. Will Rx Albuterol MDI. Pt will need to establish with a PCP and follow up. - General Info Date of Service: 10/22/21 Admission Dx/Problem (Free Text: COVID Pneumonia Subjective Update: Admitted to hospital with COVID pneumonia, date of symptom onset undetermined due to willingness to provide history and differing histories given by family members. Pt received Remdesivir and dexametha sone and has responded favorably. He has been off of oxygen for greater than 24 hours now, and nursing staff reports O2 sats in mid 90s on room air. Has ambulated in room and O2 sat wnl. States that he is wanting to be discharged home. Functional Status: Reports: Pain Controlled, Tolerating Diet, Ambulating, Urinating - Review of Systems General: Reports: No Symptoms HEENT: Reports: No Symptoms Pulmonary: Reports: Cough (improving, but has chronic cough) Cardiovascular: Reports: No Symptoms Gastrointestinal: Reports: No Symptoms Genitourinary: Reports: No Symptoms Musculoskeletal: Reports: No Symptoms Skin: Reports: No Symptoms Neurological: Reports: No Symptoms Psychiatric: Reports: No Symptoms - Patient Data Vitals - Most Recent: Last Vital Signs Temp 97.1 F 10/22/21 08:00 Pulse 76 10/22/21 08:00 Resp 18 10/22/21 08:00 BP 128/63 10/22/21 08:00 Pulse Ox 95 10/22/21 08:00 Weight - Most Recent: 220 lb I&O - Last 24 hours: Intake & Output 10/21/21 10/22/21 10/22/21 22:59 06:59 14:59 Intake Total 1000 Balance 1000 Lab Results - Last 24 hrs: Laboratory Results - last 24 hr 10/22/21 10/22/21 Range/Units 07:00 07:00 Sodium 139 (136-145) mEq/L Potassium 4.0 (3.5-5.0) mEq/L Chloride 105 (98-106) mEq/L Carbon Dioxide 22 (21-32) mmol/L BUN 21 H (7-18) mg/dL Creatinine 1.0 (0.7-1.3) mg/dL Est Cr Clr Drug Dosing 59.61 mL/min Estimated GFR (MDRD) > 60 (>=60) mL/min Glucose 142 H (75-99) mg/dL Calcium 8.3 L (8.4-10.1) mg/dL Total Bilirubin 0.4 (0.0-1.0) mg/dL Direct Bilirubin 0.1 (0.0-0.3) mg/dL AST 31 (15-37) U/L ALT 51 (12-78) U/L Alkaline Phosphatase 73 (46-116) U/L Total Protein 6.6 (6.4-8.2) g/dL Albumin 2.7 L (3.4-5.0) g/dL Med Orders - Current: Current Medications Acetaminophen (Acetaminophen 325 Mg Tab) 650 mg PO Q4H PRN PRN Reason: Pain (Mild 1-3)/fever Albuterol/Ipratropium (Albuterol/Ipratropium 3.0-0.5 Mg/3 Ml Neb Soln) 3 ml NEB Q4H PRN PRN Reason: Shortness Of Breath/wheezing Last Admin: 10/20/21 06:04 Dose: 3 ml Documented by: Aspirin (Aspirin 325 Mg Tab) 325 mg PO DAILY@1999 [facility] Last Admin: 10/21/21 19:42 Dose: 325 mg Documented by: Calcium Carbonate (Calcium Carbonate/Vitamin D3 1250 Mg-5 Mcg Tab) 1 tab PO BID@ [facility] Last Admin: 10/22/21 07:59 Dose: 1 tab Documented by: Dexamethasone (Dexamethasone 4 Mg/Ml Sdv) 6 mg IVPUSH DAILY@2199 [facility] Stop: 10/23/21 22:01 Last Admin: 10/21/21 21:38 Dose: 6 mg Documented by: Sodium Chloride (Normal Saline) 1,000 mls @ 50 mls/hr IV ASDIRECTED [facility] Last Admin: 10/22/21 03:27 Dose: 50 mls/hr Documented by: Remdesivir 100 mg/ Sodium (Chloride) 100 mls @ 100 mls/hr IV Q24H [facility] Stop: 10/23/21 20:59 Last Admin: 10/21/21 19:42 Dose: 100 mls/hr Documented by: Multivitamins/Minerals/Vitamin C (Multivitamin Tab) 1 tab PO DAILY [facility] Last Admin: 10/22/21 07:58 Dose: 1 tab Documented by: Ondansetron HCl (Ondansetron 4 Mg/2 Ml Sdv) 4 mg IV Q6H PRN PRN Reason: Nausea/Vomiting Discontinued Medications Calcium Carbonate (Calcium Carbonate/Vitamin D3 1250 Mg-5 Mcg Tab) 1 tab PO BIDMEALS [facility] Dexamethasone (Dexamethasone 4 Mg/Ml 5 Ml Mdv) 6 mg IVPUSH Q24H [facility] Stop: 10/23/21 21:01 Last Admin: 10/20/21 20:15 Dose: Not Given Documented by: Dexamethasone (Dexamethasone 4 Mg/Ml Sdv) Confirm Administered Dose 8 mg .ROUTE .STK-MED ONE Stop: 10/19/21 20:59 Last Admin: 10/20/21 20:15 Dose: Not Given Documented by: Dexamethasone (Dexamethasone 4 Mg/Ml Sdv) 6 mg IVPUSH ONETIME ONE Stop: 10/19/21 21:39 Dexamethasone (Dexamethasone 4 Mg/Ml 5 Ml Mdv) 6 mg IVPUSH Q24H [facility] Stop: 10/23/21 21:01 Dexamethasone (Dexamethasone 4 Mg/Ml 5 Ml Mdv) 6 mg IVPUSH Q24H [facility] Stop: 10/23/21 22:01 Dexamethasone (Dexamethasone 4 Mg/Ml 5 Ml Mdv) 6 mg IVPUSH Q24H [facility] Stop: 10/22/21 21:39 Last Admin: 10/20/21 20:15 Dose: Not Given Documented by: Dexamethasone (Dexamethasone 4 Mg/Ml Sdv) 4 mg IVPUSH DAILY@2200 JORDYN Enoxaparin Sodium (Enoxaparin 40 Mg/0.4 Ml Syringe) 40 mg SUBCUT Q24H [facility] Last Admin: 10/20/21 12:24 Dose: Not Given Documented by: Remdesivir 200 mg/ Sodium (Chloride) 250 mls @ 250 mls/hr IV ONETIME ONE Stop: 10/19/21 20:07 Last Admin: 10/19/21 20:48 Dose: 250 mls/hr Documented by: - Exam General: Reports: Alert, Oriented, Cooperative HEENT: Reports: Pupils Equal, Pupils Reactive, EOMI, Mucous Membr. Moist/[place] Neck: Reports: Supple Lungs: Reports: Normal Respiratory Effort, Other (somewhat coarse, but improved) Cardiovascular: Reports: Regular Rate, Regular Rhythm GI/Abdominal Exam: Normal Bowel Sounds, Soft, Non-Tender, No Distention Back Exam: Reports: Normal Inspection, Full Range of Motion Extremities: Normal Inspection, Normal Range of Motion, Non-Tender, No Pedal Edema, Normal Capillary Refill Skin: Reports: Warm, Dry, Intact Neurological: Reports: No New Focal Deficit Psy/Mental Status: Reports: Alert, Normal Affect, Normal Mood
== END 2021-10-22 13:30 | disposition home or self-care (01) | DRG 177 ==
LOC: EDBD → CC.ED 18:55 → UNDOADMIN 20:20 → CC.MS 20:20
PROVIDERS: ADMIT Nurse Practitioner Family; ATTEND Family Medicine
PROC: 8E0ZXY6 Isolation (ICD-10-PCS; principal; 2021-10-19)
PROC: XW033E5 Introduction of Remdesivir Anti-infective into Peripheral Vein, Percutaneous Approach, New Technology Group 5 (ICD-10-PCS; 2021-10-19)
PROC: 3E0333Z Introduction of Anti-inflammatory into Peripheral Vein, Percutaneous Approach (ICD-10-PCS; 2021-10-19)
DX: U07.1 COVID-19 (principal); J12.82 Pneumonia due to coronavirus disease 2019; Z66 Do not resuscitate; Z87.891 Personal history of nicotine dependence
CPT/HCPCS: 36415; 71045; 80053; 80307; 82248; 85025; 86140; 87804; 94640; 99285-25; A9270-GY; J1100; J7030; J7050; J7620-GY; U0002